=== PATIENT | male | born 1970 | race Caucasian/White ===

== ENCOUNTER 2017-10-18 10:14 | Observation (INO) | payer OTHER ==
[2017-10-18] MEDS ORDERED: CEFAZOLIN 1 GM/50 ML (PMX) 50 ML IVPB (13:30)
[2017-10-18] MEDS ORDERED: MIDAZOLAM 1 MG/ML 2 ML INJ (13:57)
[2017-10-18] MEDS: BUPIVACAINE 0.25%/EPI (SDV) 30 ML INJ (15:29)
[2017-10-18] MEDS ORDERED: GLYCOPYRROLATE 0.4 MG INJ (15:45)
[2017-10-18] MEDS ORDERED: PROPOFOL 20 ML (15:45)
[2017-10-18] MEDS ORDERED: ROCURONIUM 50 MG INJ (15:45)
[2017-10-18] MEDS ORDERED: CEFAZOLIN 1 GM INJ (15:45)
[2017-10-18] MEDS ORDERED: NEOSTIGMINE 3 MG/3 ML SYRINGE (15:45)
[2017-10-18] MEDS ORDERED: LIDOCAINE 2% (SDV) 5 ML INJ (15:45)
[2017-10-18] MEDS ORDERED: ONDANSETRON 4 MG INJ (15:46)
[2017-10-18] MEDS ORDERED: MEPERIDINE 25 MG INJ (15:52)
[2017-10-18] MEDS ORDERED: FENTAnyl 50 MCG/ML VIAL (15:55)
[2017-10-18] MEDS ORDERED: morphine 2 MG INJ IV (16:00)
[2017-10-18] MEDS ORDERED: ONDANSETRON 4 MG INJ IV (16:00)
[2017-10-18] MEDS ORDERED: HYDROmorphONE (0.2 MG/ML) 10ML SYG IV ×2 (16:00)
[2017-10-18] MEDS: MEPERIDINE 25 MG INJ IV (16:07)
[2017-10-18] MEDS: ONDANSETRON 4 MG INJ IV (16:07)
[2017-10-18] MEDS: FENTAnyl 50 MCG/ML VIAL IV ×4 (16:08→17:04)
[2017-10-18] MEDS: DIPHENHYDRAMINE 50 MG INJ IV (16:17)
[2017-10-18] MEDS: KETOROLAC 30 MG INJ IV (17:56)
[2017-10-18] MEDS: IBUPROFEN 600 MG TAB PO (17:56)
[2017-10-18] MEDS: SOD CHLORIDE 0.9% 1,000 ML IV (19:06)
[2017-10-19] MEDS: IBUPROFEN 600 MG TAB PO (10:09)
== END 2017-10-19 11:20 | disposition home or self-care (01) ==
LOC: SDS 10:14 → REC 18:16 → MS2 18:46
DX: K40.90 Unilateral inguinal hernia, without obstruction or gangrene, not specified as recurrent (principal)
CPT/HCPCS: 49505; 88302; 99217